=== PATIENT | male | born 1995 | race African-American/Black ===

== ENCOUNTER 2019-08-20 18:00 | Emergency (ER) | payer OTHER ==
[~2019-08-20] VITALS: Ht 182.9 cm; Wt 89.4 kg
[2019-08-20] MEDS ORDERED: NKM (18:05)
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
--- NOTE | 2019-08-20 18:32 | NUR ---
ED Nurse Note: skin intact. relates pain radiates to right wrist.
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
[2019-08-20] MEDS ORDERED: Acetaminophen 500mg (ES) tab ORAL ONE (18:45)
[2019-08-20] MEDS ORDERED: ACETAMINOPHEN-1 EAC1 ORAL (18:51)
[2019-08-20] MEDS ORDERED: IBUPROFEN600 MG ORAL (18:51)
--- NOTE | 2019-08-20 19:03 | NUR ---
ED Nurse Note:pt given dc aci and scripts with work note. aware and agrees to f/u with pmd/ortho for further eval. pt with ulnar gutter splint applied by adult basic education manager. pt tolerates well. good cms remains.
[2019-08-20 19:06] VITALS: BP 128/80
--- NOTE | 2019-08-21 12:48 | Diagnostic Imaging Report ---
Indication: Right hand pain Findings: 3 views of the right hand were obtained. Normal bony mineralization and alignment are demonstrated. No acute fractures, erosions, or periosteal reaction are seen. Soft tissues are unremarkable. Impression: No acute findings.
== END 2019-08-20 19:09 | disposition home or self-care (01) ==
LOC: EMR 18:29
DX: S60.221A Contusion of right hand, initial encounter (principal); Y09 Assault by unspecified means; Y92.9 Unspecified place or not applicable
CPT/HCPCS: 29125; 99283

== ENCOUNTER 2019-11-08 11:17 | Emergency (ER) | payer SELFPAY ==
[~2019-11-08] VITALS: Ht 182.9 cm; Wt 87.5 kg
[~2019-11-08 11:17] MED LIST: ACETAMINOPHEN-1 EAC1 ORAL; IBUPROFEN600 MG ORAL; NKM
[2019-11-08 11:30] VITALS: BP 135/84
--- NOTE | 2019-11-08 12:13 | Emergency Room Report ---
History of Present Illness General Chief Complaint: Upper Respiratory Illness Source: Patient Present Illness HPI 24-year-old male presents to the emergency department complaining of cough, cold sweats, sore throat, nasal congestion and rhinorrhea x4 days. Patient reports he did not receive this years flu vaccine he denies recent travel or ill contacts with similar symptoms. Patient denies history of asthma/COPD but states that he is a daily smoker. He denies measured fever/temperature. Patient denies rashes, abdominal pain, nausea, vomiting, neck pain or stiffness. Patient denies headache or photophobia. No other aggravating or relieving factors at this time. He currently denies pain. Allergies: Coded Allergies: No Known Allergies (Unverified , 08/20/19) Patient History Past Medical History: see triage record Past Surgical History: none Pertinent Family History: none Reviewed Nursing Documentation: PMH: Agreed; PSxH: Agreed Nursing Documentation-PMH Past Medical History: No Stated History Review of Systems All Other Systems: negative except mentioned in HPI Physical Exam Vital Signs Date Time Temp Pulse Resp B/P (MAP) Pulse Ox O2 Delivery O2 Flow Rate FiO2 11/08/19 11:18 98.4 79 16 135/84 (101) 95 Room Air Sp02 EP Interpretation: reviewed, normal General Appearance: no apparent distress, alert, GCS 15, non-toxic Head: normocephalic, atraumatic Eyes: bilateral eye normal inspection, bilateral eye PERRL ENT: hearing grossly normal, normal pharynx, normal voice, TMs + canals normal , uvula midline, moist mucus membranes, pharyngeal erythema Neck: full range of motion, no meningismus, no bony tend Respiratory: chest non-tender, lungs clear, normal breath sounds, no respiratory distress, no accessory muscle use, no wheezing, speaking full sentences Cardiovascular #1: regular rate, rhythm Musculoskeletal: normal range of motion, gait/station normal, non-tender Neurologic: alert, motor strength/tone normal, oriented x3, sensory intact, responsive, speech normal Psychiatric: judgement/insight normal Skin: no rash, normal color Lymphatic: no adenopathy Medical Decision Making PA Attestation Dr. Ernst is my supervising Physician whom patient management has been discussed with. Diagnostic Impression: Primary Impression: Viral upper respiratory tract infection with cough ER Course 24-year-old male presents to the emergency department complaining of cough, cold sweats, sore throat, nasal congestion and rhinorrhea x4 days. Patient reports he did not receive this years flu vaccine he denies recent travel or ill contacts with similar symptoms. Patient denies history of asthma/COPD but states that he is a daily smoker. He denies measured fever/temperature. Patient denies rashes, abdominal pain, nausea, vomiting, neck pain or stiffness. Patient denies headache or photophobia. No other aggravating or relieving factors at this time. He currently denies pain. Ddx considered but are not limited to URI, pneumonia, PE, strep pharyngitis, meningitis. Vital signs: Pt. is afebrile, the remaining VS are WNL H&PE are most consistent with URI- no meningeal signs, oropharynx is not involved, no evidence of bacterial infection at this time. ORDERS: none required at this time, the diagnosis is clinical ED INTERVENTIONS: None required at this time. --PT. EDUCATION: Discussed antibiotic resistance with inappropriate prescribing of antibiotics for viral illnesses. Discussed signs and symptoms to indicate viral illness versus bacterial illness. DISCHARGE: At this time pt. is stable for d/c to home. Will provide printed patient care instructions, and any necessary prescriptions. Care plan and follow up instructions have been discussed with the patient prior to discharge. Last Vital Signs Date Time Temp Pulse Resp B/P (MAP) Pulse Ox O2 Delivery O2 Flow Rate FiO2 11/08/19 11:30 98.4 87 16 135/84 95 Room Air Disposition: HOME, SELF-CARE Condition: Stable Departure Forms: Return to Work Return to Work Date: Nov 11, 2019 Work Restrictions: None Other Restrictions: May return Sooner if Symptoms have resolved. Return to Full Activity: Nov 11, 2019 Patient Instructions: Acute Bronchitis, Gybd-et-Role, Upper Respiratory Infection, Adult Additional Instructions: Take medications as directed. Follow up with a Primary Care Provider in 3-5 days, even if your symptoms have resolved. Return sooner to ED if new symptoms occur, or current symptoms become worse. Do not drink alcohol, drive, or operate heavy machinery while taking Cough Syrup as this may cause drowsiness. - Please note that this Emergency Department Report was dictated using [employer] infrastructure engineer technology software, occasionally this can lead to erroneous entry secondary to interpretation by the dictation equipment. Dalia Rodriguez Nov 08, 2019 12:13
[2019-11-08] MEDS ORDERED: PROMETHAZINE-C118 M1 ORAL (12:15)
[2019-11-08] MEDS ORDERED: MUCINEX1200 MG PO (12:15)
[2019-11-08] MEDS ORDERED: ALBUTEROL SULF8.5 GM INH (12:15)
[2019-11-08 12:29] VITALS: BP 130/82
== END 2019-11-08 12:20 | disposition home or self-care (01) ==
LOC: EMR 12:00
DX: J06.9 Acute upper respiratory infection, unspecified (principal); R05 Cough; F17.200 Nicotine dependence, unspecified, uncomplicated
CPT/HCPCS: 99281

== ENCOUNTER 2020-02-04 00:50 | Emergency (ER) | payer SELFPAY ==
[~2020-02-04] VITALS: Ht 185.4 cm; Wt 89.8 kg
[~2020-02-04 00:50] MED LIST changes: +ALBUTEROL SULF8.5 GM INH; +MUCINEX1200 MG PO; +PROMETHAZINE-C118 M1 ORAL
[2020-02-04 01:00] VITALS: BP 147/96
[2020-02-04] MEDS ORDERED: Lidocaine 1% 10mg/ml/EPI 0.01mg/ml 30ml INJ ONE (01:00)
[2020-02-04] MEDS ORDERED: Tetanus/Diptheria/Pertussis IM ONE (01:00)
[2020-02-04] MEDS ORDERED: HYDROcodone/Acetamin 5/325 tab ORAL ONE (01:00)
--- NOTE | 2020-02-04 01:00 | NUR ---
ED Nurse Note: Patient walked in to ED from home c/o right hand laceration. Per pt, he was helping a chain link fence and accidentally cut his hand. Bleeding was controlled after applying pressure. ERMD at bedside.
[2020-02-04] MEDS ORDERED: Lidocaine 1% Plain 30 ml INJ ONE ×2 (01:07→01:15)
--- NOTE | 2020-02-04 01:13 | Emergency Room Report ---
History of Present Illness General Chief Complaint: Laceration Source: Patient Present Illness HPI Disclaimer: Please note that this report is being documented using DRAGON technology. This can lead to erroneous entry secondary to incorrect interpretation by the dictating instrument. HPI: 24-year-old [id number]-swae-pjwoesyu male presents for laceration of the right hand. He was helping a chain dVisit fence and got a cut over the thenar eminence. Tetanus not updated in the last 10 years. He reports pain over the area but no significant bleeding. Applied pressure and got the bleeding to stop. Denies any numbness or tingling. Able to move all digits including the thumb. Denies any injury to the wrist. No other injuries reported. No other complaints. PMH: Denies PSH: Denies Allergies: Denies Social Hx: Denies COVID-19 risk:Contact w/high r: No COVID-19 risk:Travel to affect: No Has patient experienced chaudhari: No Allergies: Coded Allergies: No Known Allergies (Unverified , 08/20/19) Nursing Documentation-PMH Past Medical History: No Stated History Review of Systems All Other Systems: negative except mentioned in HPI Physical Exam Vital Signs Date Time Temp Pulse Resp B/P (MAP) Pulse Ox O2 Delivery O2 Flow Rate FiO2 02/04/20 00:53 98.1 106 16 147/96 (113) 96 Room Air General: Awake and alert, no acute distress HEENT: NC/AT. EOMI. Resp: Normal work of breathing Skin: 3 cm linear laceration over the right thenar eminence. Wound extends in the subcutaneous tissue and there is exposed muscle belly but the muscle itself is not affected. Hemostatic. Clean margins. No debris noted. MSK: Normal tone and bulk. Moving all extremities. No obvious deformity. Able to flex and extend all digits. Able to oppose the thumb. 2+ radial pulse in the right. Brisk capillary refill in all digits. Neuro: Awake and alert. Mentating appropriately. Sensation intact over the radial ulnar aspect of all digits on the right hand. Procedures Laceration/Wound Repair Laceration/Wound Repair : Consent: Verbal Wound Location: upper extremity Wound's Depth, Shape: superficial, linear Wound Length (cm): 3 Wound Explored: clean Irrigated w/ Saline (ccs): 5000 Betadine Prep?: Yes Anesthesia: 1% Lidocaine Volume Anesthetic (ccs): 7 Wound Debrided: None Wound Repaired With: sutures Suture Size/Type: 4:0, proline Number of Sutures: 8 Layer Closure?: Yes Deep Layer Suture Size/Type: 4:0, other - Vicryl Number Deep Layer Sutures: 3 Sterile Dressing Applied?: Yes Patient Tolerated: Well Complications: None Medical Decision Making Diagnostic Impression: Primary Impression: Laceration ER Course 24-year-old [id number] male presents for lacerations of the right hand. Wound was cleaned, irrigated and sutured. Tolerated the procedure well with no complications. Tetanus was updated. He will return to the emergency department for suture removal 7 to 10 days. Discussed reasons to return to the ER and signs of infection. He understands agrees with the treatment line will be discharged home. Last Vital Signs Date Time Temp Pulse Resp B/P (MAP) Pulse Ox O2 Delivery O2 Flow Rate FiO2 02/04/20 00:53 98.1 106 16 147/96 (113) 96 Room Air Reevaluation Impression Discharge to home, condition improved Referrals: NOT CHOSEN [facility]/,REFERRING (PCP) Andreas Shaw MD Feb 04, 2020 01:13
--- NOTE | 2020-02-04 02:08 | NUR ---
ED Nurse Note: ERMD sutured lac with 8 + 3 sutures in R hand, pt toleated well. care instructions given
[2020-02-04 02:10] VITALS: BP 147/96
--- NOTE | 2020-02-04 02:10 | NUR ---
ER DISCHARGE NOTE: Patient is cleared to be discharged per ERMD, pt is aox4, on room air, with stable vital signs. pt was given dc and prescription instructions, pt was able to verbalize understanding, pt id band removed. pt is able to ambulate with steady gait. pt took all belongings.
== END 2020-02-04 02:10 | disposition home or self-care (01) ==
LOC: EMR 01:03
DX: S61.411A Laceration without foreign body of right hand, initial encounter (principal); W26.9XXA Contact with unspecified sharp object(s), initial encounter; Y92.9 Unspecified place or not applicable; Z23 Encounter for immunization
CPT/HCPCS: 12002; 90471; 90715; 99283; J2001

== ENCOUNTER 2020-02-13 14:20 | Emergency (ER) | payer SELFPAY ==
[~2020-02-13] VITALS: Ht 185.4 cm; Wt 89.8 kg
--- NOTE | 2020-02-13 14:30 | NUR ---
patient not in the waiting room.
--- NOTE | 2020-02-13 14:53 | NUR ---
ED Nurse Note: tt walked into ED for suture removal on his right hand.
[2020-02-13 14:54] VITALS: BP 126/80
[2020-02-13 14:59] VITALS: BP 125/76
--- NOTE | 2020-02-13 14:59 | NUR ---
ER DISCHARGE NOTE: Patient is cleared to be discharged per ERMD, pt is aox4, on room air, with stable vital signs. pt was given dc and prescription instructions, pt was able to verbalize understanding, pt id band removed without complications. pt is able to ambulate with steady gait. pt took all belongings.
--- NOTE | 2020-02-13 14:59 | Emergency Room Report ---
History of Present Illness General Chief Complaint: Wound Recheck/Suture Removal Source: Patient Present Illness HPI Patient is a 24-year-old male presents after laceration repair approximate 10 days ago. Denies any current complaints. Patient had sutures placed to the right thenar eminence. He is right-hand dominant. Denies any problems with his thumb. Denies any fever or discharge. Presents for suture removal. Allergies: Coded Allergies: No Known Allergies (Unverified , 08/20/19) COVID-19 Screening Contact w/high risk pt: No Recent Travel to affected area: No Experienced COVID-19 symptoms?: No Patient History Past Medical History: see triage record Reviewed Nursing Documentation: PMH: Agreed; PSxH: Agreed Nursing Documentation-PMH Past Medical History: No Stated History Review of Systems All Other Systems: negative except mentioned in HPI Physical Exam Vital Signs Date Time Temp Pulse Resp B/P (MAP) Pulse Ox O2 Delivery O2 Flow Rate FiO2 02/13/20 14:46 98.2 82 17 124/75 (91) 98 Room Air General Appearance: well appearing, no apparent distress, alert, GCS 15, non- toxic Head: normocephalic, atraumatic ENT: hearing grossly normal, normal voice Neck: full range of motion, supple Respiratory: no respiratory distress, speaking full sentences Cardiovascular #1: normal inspection, normal peripheral pulses, regular rate, rhythm Gastrointestinal: normal inspection Musculoskeletal: normal inspection, no calf tenderness Neurologic: alert, benefit authorizer III-XII nml as tested, normal gait Psychiatric: mood/affect normal Skin: no rash, other - healing laceration , no discharge or bleeding Medical Decision Making Diagnostic Impression: Primary Impression: Encounter for removal of sutures ER Course Patient presented for wound check. Differential diagnosis included healed wound , cellulitis, wound dehiscence among others. The sutures were removed by me. The patient is advised to follow up with primary care doctor as needed. He was advised to continue to minimize use of affected limb until injury had more time to heal. patient is advised to return if any worsening condition or if any changes in status that are concerning. Last Vital Signs Date Time Temp Pulse Resp B/P (MAP) Pulse Ox O2 Delivery O2 Flow Rate FiO2 02/13/20 14:54 98.0 81 16 126/80 99 Room Air Status: improved Disposition: HOME, SELF-CARE Condition: Stable Referrals: NOT CHOSEN [facility]/MD,REFERRING (PCP) Patient Instructions: Wound Closure Removal Additional Instructions: Keep skin covered for 2 days. Return if any concerns Andres Graf MD Feb 13, 2020 14:59
[2020-02-13] MEDS ORDERED: Bacitracin Oint UD TOPIC ONE (15:00)
== END 2020-02-13 14:59 | disposition home or self-care (01) ==
LOC: EMR 14:44
DX: Z48.02 Encounter for removal of sutures (principal)
CPT/HCPCS: 99281

== ENCOUNTER 2020-03-27 12:22 | Emergency (ER) | payer SELFPAY ==
[~2020-03-27] VITALS: Ht 185.4 cm; Wt 86.2 kg
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
[2020-03-27 12:52] VITALS: BP 132/90
[2020-03-27] MEDS ORDERED: traMADol 50mg tab ORAL ONE (13:30)
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
[2020-03-27] MEDS ORDERED: LIDODERM700 M1 TOPIC (14:00)
[2020-03-27] MEDS ORDERED: IBUPROFEN400 MG ORAL (14:00)
[2020-03-27] MEDS ORDERED: ROBAXIN-750750 MG PO (14:00)
[2020-03-27 14:14] VITALS: BP 129/88
--- NOTE | 2020-03-27 14:15 | NUR ---
ER DISCHARGE NOTE: Patient is cleared to be discharged per PA, pt is aox4, on room air, with stable vital signs. pt was given dc and prescription instructions, pt was able to verbalize understanding, pt id band removed. pt is able to ambulate with steady gait. pt took all belongings.
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
== END 2020-03-27 14:15 | disposition home or self-care (01) ==
LOC: EMR 12:54
DX: M54.5 Low back pain (principal); M62.838 Other muscle spasm; V43.62XA Car passenger injured in collision with other type car in traffic accident, initial encounter; Y92.410 Unspecified street and highway as the place of occurrence of the external cause; M40.56 Lordosis, unspecified, lumbar region
CPT/HCPCS: 72020; 99283

== ENCOUNTER 2020-07-13 19:24 | Emergency (ER) | payer SELFPAY ==
[~2020-07-13] VITALS: Ht 182.9 cm; Wt 86.2 kg
[~2020-07-13 19:24] MED LIST changes: +IBUPROFEN400 MG ORAL; +LIDODERM700 M1 TOPIC; +ROBAXIN-750750 MG PO
--- NOTE | 2020-07-13 19:34 | NUR ---
ED Nurse Note: Patient walked in from home d/t right lower abdominal sharp pain 7/10 that started 1 hour prior to arrival. Patient aao x 4 and ambulatory with steady gait. Patient reports he has had intermittent diarrhea for 1 month, denies n/v. Patient stable during assessment. Urine collected and sent to lab.
[2020-07-13 19:36] VITALS: BP 130/82
--- NOTE | 2020-07-13 19:49 | NUR ---
ED Nurse Note: ERMD at bedside
[2020-07-13] MEDS ORDERED: Morphine Sulfate 4mg/ml Inj (IV USE ONLY) IVP ONE (20:00)
[2020-07-13] MEDS ORDERED: Omnipaque-300 100ml vial INJ PRN (20:00)
[2020-07-13 20:26] LABS: ANION GAP 8 mmol/L (5-15); BLOOD UREA NITROGEN 10 mg/dL (7-18); CALCIUM 8.7 MG/DL (8.5-10.1); CARBON DIOXIDE 29 MMOL/L (21-32); CHLORIDE 104 MMOL/L (98-107); CREATININE 1.5 MG/DL (0.55-1.30); POTASSIUM 3.6 MMOL/L (3.5-5.1); SODIUM 141 MMOL/L (136-145)
[2020-07-13 20:29] LABS: APPEARANCE,URINE CLEAR; BILIRUBIN, URINE NEGATIVE (NEGATIVE); COLOR,URINE PALE YELLOW; GLUCOSE, URINE (UA) NEGATIVE (NEGATIVE); KETONES,URINE NEGATIVE (NEGATIVE); LEUKOCYTE ESTERASE ,URINE NEGATIVE (NEGATIVE); NITRITE,URINE NEGATIVE (NEGATIVE); PH,URINE 7 (4.5-8.0); PROTEIN,URINE NEGATIVE (NEGATIVE); UROBILINOGEN,URINE NORMAL MG/DL (0.0-1.0)
[2020-07-13 20:31] LABS: ALANINE AMINOTRANSFERASE 28 U/L (12-78); ALBUMIN 3.9 G/DL (3.4-5.0); ALBUMIN/GLOBULIN RATIO 1.1 (1.0-2.7); ALKALINE PHOSPHATASE 79 U/L (46-116); ASPARTATE AMINO TRANSFERASE 23 U/L (15-37); BILIRUBIN,TOTAL 0.8 MG/DL (0.2-1.0)
[2020-07-13 20:41] LABS: BASOPHILS % (AUTO) 2.3 % (0.0-2.0); EOSINOPHILS % (AUTO) 2.7 % (0.0-3.0); HEMATOCRIT 47.3 % (42.0-52.0); HEMOGLOBIN 15.8 G/DL (14.2-18.0); LYMPHOCYTES % (AUTO) 29.6 % (20.0-45.0); MEAN CORPUSCULAR VOLUME 95 FL (80-99); MONOCYTES % (AUTO) 9.9 % (1.0-10.0); NEUTROPHILS % (AUTO) 55.5 % (45.0-75.0); PLATELET COUNT 327 K/UL (150-450); RED BLOOD COUNT 4.99 M/UL (4.70-6.10); RED CELL DISTRIBUTION WIDTH 12.2 % (11.6-14.8); WHITE BLOOD COUNT 7.4 K/UL (4.8-10.8)
--- NOTE | 2020-07-13 20:49 | NUR ---
ED Nurse Note: Patient taken to CT in stable condition
--- NOTE | 2020-07-13 21:23 | Diagnostic Imaging Report ---
EXAM: CT Abdomen and Pelvis With Intravenous Contrast CLINICAL HISTORY PAIN Patient walked in from home d/t right lower abdominal sharp pain 7/10 that started 1 hour prior to arrival. Patient aao x 4 and ambulatory with steady gait. Patient reports he has had intermittent diarrhea for 1 month, denies n/v. TECHNIQUE: Axial computed tomography images of the abdomen and pelvis with intravenous contrast. CTDI is 5.1 mGy and DLP is 277.8 mGy-cm. One or more of the following dose reduction techniques were used: automated exposure control, adjustment of the mA and/or kV according to patient size, use of iterative reconstruction technique. COMPARISON: No relevant prior studies available. FINDINGS: Lung bases: Unremarkable. No mass. No consolidation. ABDOMEN: Liver: Unremarkable. No mass. Gallbladder and bile ducts: Contracted gallbladder. No biliary ductal dilatation. Pancreas: Unremarkable. No mass. No ductal dilation. Spleen: Unremarkable. No splenomegaly. Adrenals: Unremarkable. No mass. Kidneys and ureters: Unremarkable. No solid mass. No hydronephrosis. Stomach and bowel: Unremarkable. No obstruction. No mucosal thickening. PELVIS: Appendix: Normal appendix (61). No secondary findings to suggest acute appendicitis. Bladder: Unremarkable. No mass. Reproductive: Unremarkable as visualized. ABDOMEN and PELVIS: Intraperitoneal space: Unremarkable. No free air. No significant fluid collection. Bones/joints: No acute fracture. No dislocation. Soft tissues: Unremarkable. Vasculature: Unremarkable. No abdominal aortic aneurysm. Lymph nodes: Unremarkable. No enlarged lymph nodes. IMPRESSION: No CT findings identified in the abdomen or pelvis to explain the patient's symptoms. Normal appendix.
[2020-07-13] MEDS ORDERED: COLACE100 MG ORAL (21:37)
--- NOTE | 2020-07-13 21:39 | Emergency Room Report ---
History of Present Illness General Chief Complaint: Abdominal Pain Source: Patient Present Illness HPI 25-year-old male here with right lower quadrant and right testicular pain. Patient says that his pain started acutely approximately 1 hour prior to coming to the emergency department. It is sharp in nature, located in the right lower quadrant and radiates to his right testicle. Patient is sexually active and does not use condoms. Denies any dysuria or penile discharge. Has never had pain like this before says that he suffers from chronic constipation mixed with occasional diarrhea. Had a normal bowel movement today. Denies headaches, vision changes, fevers, chills, chest pain, palpitation, shortness of breath, back pain, other abdominal pain, nausea, vomiting, dysuria, hematuria. 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 Nursing Documentation-[facility] Past Medical History: No Stated History Review of Systems All Other Systems: negative except mentioned in HPI Physical Exam Vital Signs Date Time Temp Pulse Resp B/P (MAP) Pulse Ox O2 Delivery O2 Flow Rate FiO2 07/13/20 19:29 97.9 91 16 132/85 (101) 97 07/13/20 19:36 Room Air Sp02 EP Interpretation: reviewed, normal General Appearance: no apparent distress, alert, non-toxic Head: normocephalic, atraumatic Eyes: bilateral eye normal inspection, bilateral eye PERRL ENT: hearing grossly normal, normal pharynx, no angioedema, normal voice Neck: full range of motion, supple/symm/no masses Respiratory: chest non-tender, lungs clear, normal breath sounds, speaking full sentences Cardiovascular #1: regular rate, rhythm, no edema Cardiovascular #2: 2+ carotid (R), 2+ carotid (L), 2+ radial (R), 2+ radial (L) , 2+ dorsalis pedis (R), 2+ dorsalis pedis (L) Gastrointestinal: normal bowel sounds, soft, non-distended, no guarding, no rebound, other - Positive right lower quadrant tenderness on palpation at McBurney's point. Negative Rovsing sign. Negative Bhatia sign. Nondistended. No rebound or guarding. No peritoneal signs Rectal: deferred Genitourinary: normal inspection, no CVA tenderness, other - Pain on palpation of the right epididymis. Normal testicular orientation. No testicular pain or swelling. No active penile discharge. No lesions Musculoskeletal: back normal, normal range of motion, calf tenderness, gait/ station normal, non-tender Neurologic: alert, motor strength/tone normal, oriented x3, sensory intact, responsive, speech normal Psychiatric: judgement/insight normal, memory normal, mood/affect normal, no suicidal/homicidal ideation Reflexes: 3+ bicep (R), 3+ bicep (L), 3+ tricep (R), 3+ tricep (L), 3+ knee (R) , 3+ knee (L) Lymphatic: no adenopathy Medical Decision Making Diagnostic Impression: Primary Impression: Abdominal pain Additional Impression: Epididymitis ER Course Laboratory Tests Test 07/13/20 19:39 White Blood Count 7.4 K/UL (4.8-10.8) Red Blood Count 4.99 M/UL (4.70-6.10) Hemoglobin 15.8 G/DL (14.2-18.0) Hematocrit 47.3 % (42.0-52.0) Mean Corpuscular Volume 95 FL (80-99) Mean Corpuscular Hemoglobin 31.6 PG (27.0-31.0) H Mean Corpuscular Hemoglobin Concent 33.4 G/DL (32.0-36.0) Red Cell Distribution Width 12.2 % (11.6-14.8) Platelet Count 327 K/UL (150-450) Mean Platelet Volume 8.0 FL (6.5-10.1) Neutrophils (%) (Auto) 55.5 % (45.0-75.0) Lymphocytes (%) (Auto) 29.6 % (20.0-45.0) Monocytes (%) (Auto) 9.9 % (1.0-10.0) Eosinophils (%) (Auto) 2.7 % (0.0-3.0) Basophils (%) (Auto) 2.3 % (0.0-2.0) H Urine Color Pale yellow Urine Appearance Clear Urine pH 7 (4.5-8.0) Urine Specific Lester 1.010 (1.005-1.035) Urine Protein Negative (NEGATIVE) Urine Glucose (UA) Negative (NEGATIVE) Urine Ketones Negative (NEGATIVE) Urine Blood Negative (NEGATIVE) Urine Nitrite Negative (NEGATIVE) Urine Bilirubin Negative (NEGATIVE) Urine Urobilinogen Normal MG/DL (0.0-1.0) Urine Leukocyte Esterase Negative (NEGATIVE) Sodium Level 141 MMOL/L (136-145) Potassium Level 3.6 MMOL/L (3.5-5.1) Chloride Level 104 MMOL/L (98-107) Carbon Dioxide Level 29 MMOL/L (21-32) Anion Gap 8 mmol/L (5-15) Blood Urea Nitrogen 10 mg/dL (7-18) Creatinine 1.5 MG/DL (0.55-1.30) H Estimated Glomerular Filtration Rate > 60 mL/min (>60) Glucose Level 106 MG/DL (74-106) Calcium Level 8.7 MG/DL (8.5-10.1) Total Bilirubin 0.8 MG/DL (0.2-1.0) Aspartate Amino Transferase (AST) 23 U/L (15-37) Alanine Aminotransferase (ALT) 28 U/L (12-78) Alkaline Phosphatase 79 U/L (46-116) Total Protein 7.5 G/DL (6.4-8.2) Albumin 3.9 G/DL (3.4-5.0) Globulin 3.6 g/dL Albumin/Globulin Ratio 1.1 (1.0-2.7) Lipase 82 U/L (73-393) CT abd pel: IMPRESSION: No CT findings identified in the abdomen or pelvis to explain the patient's symptoms. Normal appendix. 25-year-old male here with right lower quadrant abdominal pain and right testicular pain. Patient was hemodynamically stable in the emergency department. He had pain on palpation of the right lower quadrant and right epididymis. He is sexually active and does not use condoms consistently. He however did not have any active penile drainage or discharge or dysuria. CBC and CMP were unremarkable. Urinalysis normal. CT abdomen pelvis did not show any acute abnormalities, and showed a normal appendix. Patient however did have pain on palpation of the right epididymis. He was treated with ceftriaxone and azithromycin for suspected epididymitis. He said that he has been having chronic intermittent diarrhea and that he has an appointment coming up with a primary care physician for possible referral to a rn residential. He was given a prescription for Colace to take once daily. Given instructions on safe intercourse. Told to come back to the emergency department if he has any worsening pain, vomiting, fevers, discharge, testicular pain. He expressed understanding and was discharged. Last Vital Signs Date Time Temp Pulse Resp B/P (MAP) Pulse Ox O2 Delivery O2 Flow Rate FiO2 07/13/20 20:35 97.9 07/13/20 19:36 90 18 Room Air 07/13/20 19:36 130/82 97 Disposition: HOME, SELF-CARE Condition: Stable Scripts Docusate Sodium* (COLACE*) 100 Mg Capsule 100 MG ORAL DAILY, #30 CAP Prov: Kev Pedroza M.D. 07/13/20 Referrals: [facility] Patient Instructions: Abdominal Pain, Adult Additional Instructions: Please follow-up with your primary care doctor in the next 1 to 3 days to discuss this emergency department visit and for reevaluation. If you have any new or worsening symptoms please return to the emergency department for reevaluation. Kev Pedroza M.D. Jul 13, 2020 21:39
[2020-07-13] MEDS ORDERED: Lidocaine 1% MPF 10mg/ml 5ml INJ ONE (21:45)
[2020-07-13] MEDS ORDERED: Azithromycin 250mg tab ORAL ONE (21:45)
[2020-07-13 21:46] VITALS: BP 133/78
--- NOTE | 2020-07-13 21:46 | NUR ---
ER DISCHARGE NOTE: Patient is cleared to be discharged per ERMD, pt is aox4, on room air, with stable vital signs. pt was given dc and prescription instructions, pt was able to verbalize understanding, pt id band and iv site removed intact without complications. pt is able to ambulate with steady gait. pt took all belongings. pt stable upon discharge.
== END 2020-07-13 21:46 | disposition home or self-care (01) ==
LOC: EMR 19:57
DX: N45.1 Epididymitis (principal); R10.31 Right lower quadrant pain
CPT/HCPCS: 36415; 74177; 80053; 81003; 83690; 85025; 96361; 96372; 96374; 96375; 99284; J0696; J2270; J7030; Q9965